=== PATIENT | male | born 1960 | race Caucasian/White ===

== ENCOUNTER 2017-09-06 06:27 | Emergency (ER) | payer OTHER ==
[~2017-09-06] VITALS: Ht 188 cm; Wt 166.0 kg
[2017-09-06 06:39] VITALS: BP_SYST 173
--- NOTE | 2017-09-06 06:45 | NUR ---
HUNTER Carney at bedside for medical evaluation.
--- NOTE | 2017-09-06 06:45 | NUR ---
Patient to ER bed 8 to gown for evaluation. Side rails up.
--- NOTE | 2017-09-06 06:48 | NUR ---
Patient AOx4, brought by ambulance BLS for complaint of flu-like symptoms x3 weeks and falls x2. Patient has hx of MS. No other symptoms or complaints at this time. O2 sat 97% RA.
[2017-09-06] MEDS ORDERED: BUPR100T13 PO (06:49)
[2017-09-06] MEDS ORDERED: ACETAMINOPHEN 500 MG TABLET PO ONE (07:15)
--- NOTE | 2017-09-06 07:30 | NUR ---
TEMP 98.9F, WILL CONTINUE TO MONITOR
[2017-09-06 07:59] LABS: BASOPHILS % (AUTO) 0.2 % (0.0-2.0); EOSINOPHILS % (AUTO) 0.2 % (0.0-4.0); HEMATOCRIT 49.5 % (36-54); HEMOGLOBIN 16.5 g/dL (14.0-18.0); LYMPHOCYTES # (AUTO) 0.6 K/uL (1.0-5.5); LYMPHOCYTES % (AUTO) 9.9 % (20.5-51.5); MEAN CORPUSCULAR HEMOGLOBIN 30 pg (27-31); MEAN CORPUSCULAR HGB CONC 33 % (32-36); MEAN CORPUSCULAR VOLUME 89 fL (79.0-98.0); MONOCYTES # (AUTO) 0.7 K/uL (0.0-1.0); MONOCYTES % (AUTO) 12.6 % (1.7-9.3); NEUTROPHILS # (AUTO) 4.5 K/uL (1.8-7.7); NEUTROPHILS % (AUTO) 77.1 % (40.0-70.0); PLATELET COUNT (AUTO) 132 K/uL (130-430); RED BLOOD CELL COUNT(AUTO) 5.59 MIL/uL (4.2-6.2); RED CELL DISTRIBUTION WIDTH 13.6 % (9.0-15.0); WHITE BLOOD COUNT (AUTO) 5.8 K/uL (4.8-10.8)
[2017-09-06 08:18] LABS: CALCIUM 9.2 mg/dL (8.4-11.0); CREATININE 1.09 mg/dL (0.55-1.30); POTASSIUM 4.1 mmol/L (3.5-5.1)
[2017-09-06 08:36] LABS: ALBUMIN 3.6 g/dL (3.4-4.8); TOTAL BILIRUBIN 1.3 mg/dL (0.0-1.0)
[2017-09-06] MEDS ORDERED: OSELTAMIVIR PHOSPHATE 75 MG CAPSULE PO ONE (09:00)
--- NOTE | 2017-09-06 10:00 | NUR ---
# 20 gauge angiocath placed to RAC. Use of asceptic technique. Opsite placed over site. Blood return noted. Flushed with 10 cc of normal saline. No evidence of infiltration noted. Patient tolerated well.
--- NOTE | 2017-09-06 10:54 | NUR ---
CALLED JULIETA GUTIÉRREZ TO GIVE PT REPORT, EMS ETA [id number].
--- NOTE | 2017-09-06 11:18 | NUR ---
Patient to be transferred to [facility]. Is being transferred due to higher level of care. Receiving facility has accepting physician and available space. ER physician has signed transfer form. Patient or responsible green party has agreed to transfer and signed form. Patient belongings inventoried and will be sent with patient. Copy of nursing notes, lab reports, EKG, Physicians Orders and X-rays to be sent with patient. Report called to [facility]. Receiving physician is DR DARBY. [id number] ambulance service has been called for transfer, EMS HERE NOW.
[2017-09-06 11:20] VITALS: BP_SYST 164
== END 2017-09-06 11:19 | disposition short-term general hospital (02) ==
LOC: SED 06:27
DX: I24.9 Acute ischemic heart disease, unspecified (principal); R53.1 Weakness; J09.X2 Influenza due to identified novel influenza A virus with other respiratory manifestations; R79.89 Other specified abnormal findings of blood chemistry
CPT/HCPCS: 36415; 71045; 80053; 83605; 83690; 83880; 84484; 85025; 86710; 87040; 93005; 99285; G9035